=== PATIENT | female | born 1960 | race Caucasian/White ===

== ENCOUNTER 2019-05-07 16:06 | Inpatient (IN) ==
[2019-05-07] MEDS ORDERED: Cefepime HCl 2,000 MG in Water for inj. (sterile) 20 ML IVP STA (16:16)
[2019-05-07] MEDS ORDERED: Ondansetron 4 MG/2 ML VIAL IVP ONE (16:23)
[2019-05-07] MEDS ORDERED: Morphine Sulfate 2 MG/ML SYRINGE IVP ONE (16:23)
[2019-05-07 17:06] LABS: Hematocrit 41.2 % (35.3-44.9); Hemoglobin 13.2 g/dL (11.5-15.4); Mean Corpuscular Hemoglobin 28.4 pg (28.0-33.3); Mean Corpuscular Volume 88.8 fL (83.0-100.0); Mean Platelet Volume 10.1 fL (9.4-12.4); Platelet Count 421 K/mcL (140-400); Red Blood Count 4.64 M/mcL (3.82-4.97); Red Cell Distribution Width 13.1 % (11.5-14.5); White Blood Count 12.2 K/mcL (4.3-11.1)
[2019-05-07 17:30] LABS: Alanine Aminotransferase 23 Units/L (7-52); Albumin 3.4 g/dL (3.5-5.7); Albumin/Globulin Ratio 0.9 (1.1-2.2); Alkaline Phosphatase 137 Units/L (34-104); Aspartate Amino Transferase 21 Units/L (13-39); BUN/Creatinine Ratio 22 (6-26); Bilirubin,Total 0.4 mg/dL (0.3-1.0); Blood Urea Nitrogen 20 mg/dL (6-20); Calcium 8.7 mg/dL (8.6-10.3); Carbon Dioxide 26 mEq/L (23-29); Chloride 106 mEq/L (98-107); Globulin 3.8 g/dL (2.4-3.5); Glucose 95 mg/dL (70-105); Osmolality,Calculated 294 (280-300); Potassium 4.2 mEq/L (3.5-5.1); Sodium 141 mEq/L (136-145); Total Protein 7.2 g/dL (6.4-8.9); eGFR For African Americans > 60 (> 60); eGFR For Non-African Americans > 60 (> 60)
[2019-05-07 17:35] LABS: Lymphocytes # 2.7 K/mcL (0.6-4.6); Neutrophils # 8.1 K/mcL (1.6-8.9)
[2019-05-07 17:36] LABS: Eosinophils # 0.2 K/mcL (0.0-0.6)
[2019-05-07 17:37] LABS: Platelet Estimate Normal (Normal)
[2019-05-07] MEDS ORDERED: Mag Hydrox/Al Hydrox/Simeth 30 ML UDC PO PRN (20:10)
[2019-05-07] MEDS ORDERED: Naloxone 0.4 MG/ML INJ IVP PRN (20:10)
[2019-05-07 21:33] LABS: Bilirubin,Urine Negative (Negative); Blood,Urine Trace-lysed (Negative); Clarity,Urine Slightly Cloudy (Clear); Color,Urine Yellow (Yellow); Glucose,Urine (UA) Normal (Normal); Ketones,Urine Negative (Negative); Leukocyte Esterase,Urine Negative (Negative); Nitrite,Urine Negative (Negative); Protein,Urine Negative (Neg-Trace); Specific Gravity,Urine >= 1.030 (1.010-1.025); Urobilinogen,Urine Normal (Normal)
[2019-05-07 21:40] LABS: Bacteria,Urine Moderate per hpf (None-Few); RBC,Urine 0-3 per hpf (0-3); Squamous Epithelial Cell,Urine Many per lpf (None-Few); WBC,Urine 0-3 per hpf (0-3); Yeast,Urine Few per hpf (None Seen)
[2019-05-07] MEDS: Ondansetron ODT 4 MG TAB.RAPDIS SL PRN (22:32)
[2019-05-07] MEDS: *HR* HYDROcodone/Acet 5/325 mg TABLET PO PRN (22:39)
[2019-05-08] MEDS: *HR* HYDROcodone/Acet 5/325 mg TABLET PO PRN ×4 (05:05→21:28)
[2019-05-08] MEDS: Cefepime HCl 2,000 MG in Water for inj. (sterile) 20 ML IVP SCH ×2 (05:10→17:09)
[2019-05-08 06:04] LABS: Hemoglobin 12.1 g/dL (11.5-15.4); Mean Corpuscular HGB Conc 31.8 g/dL (31.6-35.5); Mean Corpuscular Hemoglobin 28.5 pg (28.0-33.3); Mean Corpuscular Volume 89.4 fL (83.0-100.0); Mean Platelet Volume 10.3 fL (9.4-12.4); Platelet Count 423 K/mcL (140-400); Red Blood Count 4.25 M/mcL (3.82-4.97); White Blood Count 12.1 K/mcL (4.3-11.1)
[2019-05-08 06:34] LABS: BUN/Creatinine Ratio 24 (6-26); Blood Urea Nitrogen 19 mg/dL (6-20); Calcium 8.4 mg/dL (8.6-10.3); Carbon Dioxide 24 mEq/L (23-29); Chloride 108 mEq/L (98-107); Glucose 112 mg/dL (70-105); Osmolality,Calculated 293 (280-300); Potassium 4.4 mEq/L (3.5-5.1); Sodium 140 mEq/L (136-145); eGFR For African Americans > 60 (> 60); eGFR For Non-African Americans > 60 (> 60)
[2019-05-08] MEDS ORDERED: *HR* HYDROcodone/Acet 5/325 mg TABLET PO ONE (07:52)
[2019-05-08] MEDS: valACYclovir 500 MG TABLET PO SCH (21:28)
[2019-05-08] MEDS: Nystatin POWDER 30 GM BOTTLE TP SCH (21:29)
[2019-05-08] MEDS ORDERED: Ketorolac 30 MG/ML VIAL IVP ONE (23:35)
[2019-05-09] MEDS: *HR* HYDROcodone/Acet 5/325 mg TABLET PO PRN ×2 (02:11→06:18)
[2019-05-09] MEDS ORDERED: *HR* Enoxaparin 40 MG/0.4 ML SYRINGE SQ SCH (06:00)
[2019-05-09] MEDS: Cefepime HCl 2,000 MG in Water for inj. (sterile) 20 ML IVP SCH (06:18)
[2019-05-09 07:06] VITALS: BP 109/61
[2019-05-09] MEDS ORDERED: Ketorolac 30 MG/ML VIAL IVP PRN (07:29)
[2019-05-09 07:40] LABS: Hematocrit 36.2 % (35.3-44.9); Hemoglobin 11.5 g/dL (11.5-15.4); Mean Corpuscular HGB Conc 31.8 g/dL (31.6-35.5); Mean Corpuscular Hemoglobin 28.5 pg (28.0-33.3); Mean Corpuscular Volume 89.6 fL (83.0-100.0); Mean Platelet Volume 9.9 fL (9.4-12.4); Platelet Count 396 K/mcL (140-400); Red Blood Count 4.04 M/mcL (3.82-4.97); Red Cell Distribution Width 12.6 % (11.5-14.5); White Blood Count 11.7 K/mcL (4.3-11.1)
[2019-05-09] MEDS ORDERED: *HR* HYDROcodone/Acet 10/325 mg TABLET PO PRN (07:54)
[2019-05-09 08:15] LABS: BUN/Creatinine Ratio 24 (6-26); Blood Urea Nitrogen 20 mg/dL (6-20); Calcium 8.3 mg/dL (8.6-10.3); Carbon Dioxide 24 mEq/L (23-29); Chloride 109 mEq/L (98-107); Glucose 102 mg/dL (70-105); Osmolality,Calculated 291 (280-300); Potassium 4.3 mEq/L (3.5-5.1); Sodium 139 mEq/L (136-145); eGFR For African Americans > 60 (> 60); eGFR For Non-African Americans > 60 (> 60)
[2019-05-09] MEDS: valACYclovir 500 MG TABLET PO SCH (09:40)
[2019-05-09] MEDS: Nystatin POWDER 30 GM BOTTLE TP SCH (09:41)
[2019-05-09] MEDS: Ondansetron ODT 4 MG TAB.RAPDIS SL PRN (11:21)
== END 2019-05-09 14:32 | disposition short-term general hospital (02) | DRG 603 ==
LOC: INPPIK 16:06 → EMEROOPIK 16:06 → INPPIK 20:35
PROVIDERS: ADMIT Family Medicine; ATTEND Family Medicine